=== PATIENT | female | born 1970 | race Caucasian/White ===

== ENCOUNTER 2016-11-12 06:00 | Day surgery (SDC) | payer OTHER ==
[~2016-11-12] VITALS: Ht 182.9 cm; Wt 74.2 kg
[2016-11-12] VITALS (12 sets, daily range): BP systolic 112–145; BP diastolic 55–76; PULSE 61–80; RESP 12–20; O2SAT 95–100
[2016-11-12] MEDS: Lactated Ringer's 1,000 ML IV SCH ×3 (05:00→08:59)
[~2016-11-12 06:00] MED LIST: CA C1TAB77 PO; MULT-1018 PO; TURM500C7 PO; levofloxacin; magnesium PO
[2016-11-12] MEDS ORDERED: Propofol 10,000 mCg/mL 20 mL Inj ONE (06:01)
[2016-11-12] MEDS ORDERED: Dexamethasone 4 mg/mL Inj ONE (06:01)
[2016-11-12] MEDS ORDERED: Ondansetron 2 mg/mL 2 mL Inj ONE (06:01)
[2016-11-12] MEDS ORDERED: Lidocaine PF 1% 30 mL Inj ONE (06:01)
[2016-11-12] MEDS ORDERED: HYDROmorphone 2 mg/mL Inj ONE (06:01)
[2016-11-12] MEDS ORDERED: Rocuronium 10 mg/mL 5 mL Inj ONE (06:01)
[2016-11-12] MEDS ORDERED: fentaNYL-PF 50 mCg/mL 2 mL Inj ONE (06:01)
[2016-11-12] MEDS ORDERED: Glycopyrrolate 0.2 mg/mL 5 mL Inj ONE (06:01)
[2016-11-12] MEDS ORDERED: EPHEDrine/NS 5 mg/mL 5 mL Syringe ONE (06:01)
[2016-11-12] MEDS ORDERED: Ketamine 10 mg/mL 20 mL Inj ONE (06:01)
[2016-11-12] MEDS ORDERED: Neostigmine 1 mg/mL 5 mL Inj ONE (06:01)
[2016-11-12] MEDS ORDERED: Lactated Ringer's 1,000 ML IV ONE ×3 (06:51→11:18)
--- NOTE | 2016-11-12 06:51 | PCM.HPANE ---
Patient Data Date of Service: Nov 12, 2016 Surgeon Admitting Provider: Attending Provider:Tad Ya MD Primary Care Physician:Sima Castillo CNM Other Provider:Stephani Barnes Anesthesia Reason for Visit Left Breast Cancer Ht/WT & BMI Height (Feet): 6 Height (Inches): 0 Weight (Kilograms): 74.2 Body Mass Index 22.00 Allergies Coded Allergies: No Known Allergies (Unverified , 06/06/16) Past Anesthesia History Anesthesia History: Denies:: Abnormal Airway, Anesthesia Reactions, Difficult Intubation, Fam Anesthesia Reaction, Malignant Hyperthermia Diabetes History Hx Diabetes?: No MRSA MRSA: No Medications Hypertension Medication: No Home Meds Incl Beta Toney: No Reported Medications Lactobacillus Combo No.11 (Probiotic)1 Each Cap.sprink1 Each PO DAILY 11/12/16 [D3] No Conflict [id number] Mg PO DAILY 11/12/16 Turmeric Root Extract (Turmeric)500 Mg [id number] Mg PO DAILY 11/07/16 Multivitamin (Multi Vitamin Daily)1 Each Tablet1 Each PO DAILY 30 Days Ref 0 11/07/16 [magnesium] No Conflict [id number] Mg PO DAILY 11/07/16 Discontinued Reported Medications [levofloxacin] No Conflict CheckUnknown Dose DAILY 11/07/16 Ca Carb/Vit D3/Mag Ox/Zn Oxide (Ilia Mag Zinc + D3 Tablet)1 Each Tablet1 Each PO 11/07/16 Ciprofloxacin 500 Mg [id number] Mg PO BID 07/11/16 [Lidocaine 2.5%] No Conflict Check1 Applic TOPICAL ONCE PRN For Pain 06/22/16 Cholecalciferol (Vitamin D3) (Vitamin D3)5,000 Unit/1 Ml Drops5,000 Unit PO DAILY 06/22/16 Lactobacillus Combination No.4 (Probiotic)1 Each Capsule1 Each PO DAILY 06/22/16 Hydrocodone-Acetaminophen 5-325 mg 1 Each Tablet1-2 Tab PO Q6 PRN For Pain Ref 0 06/22/16 Lorazepam 0.5 Mg Tablet0.5 Mg PO TID PRN For Anxiety Ref 0 06/13/16 Ondansetron 8 Mg Tablet8 Mg PO BID PRN VALENTINA 06/13/16 Turmeric Root Extract (Turmeric)500 Mg Nthstfy886 Mg PO DAILY 06/06/16 Multivitamin (Multi Vitamin Daily)1 Each Tablet1 Each PO DAILY 30 Days Ref 0 06/06/16 Discontinued Scripts Amoxicillin/Clav K 875-125 mg (Augmentin 875-125 mg)1 Each Tablet1 Tablet PO BID #10 TABLET Ref 0 Prov:Carol Lacy MD 06/24/16 History History of ENT Problems?: No HEENT History: Denies:: Abnormal Airway Cataracts Difficult Intubation Dysphagia Glaucoma Hearing Problem Sinus Problem Hx of Heart Problems?: No Cardiovascular History: Denies:: AICD Chest Pain Edema Heart Murmur Hypertension Irregular Heartbeat Pacemaker Hx of Respiratory Problem?: No Respiratory History: Denies:: Asthma COPD Emphysema Oxygen Administration Pneumonia Tuberculosis Use of C-PAP Machine Use of Inhalers / NEBS Hx Neurologic Problems?: No Neurological History: Denies:: CVA Headaches Multiple Sclerosis Parkinson's Disease Seizures Hx of GI Problems?: No Gastrointestinal History: Denies:: Gall Bladder Disease Gastroesphageal Reflux Heartburn Hiatal Hernia Liver Disease Hx of Problems?: No Genitourinary History: Denies:: Kidney Stones Urinary Tract Infection Female Hx: Positive for:: Problems with Breasts? (harman simple mastectomy, left axillary LND current admission problem) Denies:: Currently (S/P C/S) Skin History: Denies:: History Skin Disorders? Pressure Ulcers Hx Musculoskeletal Problems?: Yes Musculoskeletal History: Positive for:: Back Injury (hx of herniated disc, not current problem) Denies:: Fibromyalgia Joint Replacement Musculoskeletal Trauma Myasthenia Gravis Osteoarthritis Rheumatoid Arthritis Hx of Psycho/Social Problems?: No Psycho Social History: Denies:: Anxiety Hx Depression Hx Surgeries?: Yes (C SECTION, Left under arm lymph node removal) Hx Any Other Health Problems?: Yes Other History: Positive for:: Cancer (left breast ) Denies:: Endocrine Disease Hospitalization Thyroid Disease History Blood Transfusions: Positive for:: Accept Blood Products? Denies:: Blood Transfuse Reaction Blood Transfusions Hx Diabetes: No Hx Alcohol Use: NoHx Substance Use: No Smoking Status: Never Smoker Have You Smoked inLast 12 mo: No Stop/Bang S-Snoring: Do You Snore Loudly: No T-Tired: feel tired, fatigued: No O-Obsered: Observed not breath: No P-Blood Pressure: treated: No B- Body Mass Index > 35 kg/m2: No A- Age over 50: No N- Neck Large Circumference: No G- Gender Male: No FRANKLIN Total Score: 0 Risk Assessment Category Category 1A: Patient has history of documented sleep apnea, and HAS NOT received any narcotic, sedative or anesthesia administration during this stay. Category 1B: Patient has history of documented sleep apnea, and HAS received any narcotic , sedative or anesthesia administration during this stay Category 2: Patient has SUSPECTED Obstructive Sleep Apnea, and HAS received any narcotic , sedative or anesthesia administration during this stay. Category 3: Patient has SUSPECTED Obstructive Sleep Apnea and HAS NOT received narcotic, sedative or anesthesia administration during this stay. Category 4: Outpatient in Procedural Areas with known sleep apnea or who screen positive for High Risk via the STOP/BANG questionnaire. Exam Exam Vital Signs Vital Signs Date Time Temp Pulse Resp B/P Pulse Ox O2 Delivery O2 Flow Rate FiO2 11/12/16 06:31 36.6 68 20 119/72 98 Room Air General Appearance: Alert, Oriented X3, Cooperative, No Acute Distress HEENT/AIRWAY: MP 1 Lungs: Clear to Auscultation Heart: Exam Unremarkable, Normal S1, Normal S2 Meds/Labs/Diagnostics Admission Meds Current Medications Lactated Ringer's (Lr) 1,000 ml @ 120 mls/hr Q8H20M IV Last administered on t 06:45; Start 11/12/16 at 05:00; Stop 11/12/16 at 13:19 Plan Impression Patient chart reviewed, patient interviewed and anesthestic plan with risks, benefits, and alternatives discussed, and informed consent obtained. NPO Status: 06/10 2030 ASA Physical Status: ASA1 Normal Healthy Anesthetic Plan: GA Bene/Risks/Altern/Consents: Yes HP Complete Prior to Induction: Yes Jeff Daniel DO Nov 12, 2016 06:51
[2016-11-12] MEDS ORDERED: LACT1CAP73 PO (06:52)
[2016-11-12] MEDS ORDERED: D3 PO (06:52)
[2016-11-12] MEDS: CeFAZolin Inj 2 GM in IV Premix 1 EACH IV ONE (08:30)
[2016-11-12] MEDS ORDERED: Bupivacaine-MPF 0.5% 30 mL Inj INFILTRATE ONE (08:59)
[2016-11-12] MEDS ORDERED: Lactated Ringer's 1,000 ML IV SCH (10:36)
[2016-11-12] MEDS ORDERED: Lactated Ringer's 500 ML IV PRN (10:36)
[2016-11-12] MEDS ORDERED: hydrOXYzine Inj 25 MG/1 mL SDV IM PRN (10:40)
[2016-11-12] MEDS ORDERED: EPHEDrine Sulfate 50 mg/mL Inj IVPUSH PRN (10:40)
[2016-11-12] MEDS ORDERED: HYDROmorphone 1 mg/mL Inj IVPUSH PRN ×2 (10:40→12:00)
[2016-11-12] MEDS ORDERED: fentaNYL-PF 50 mCg/mL 2 mL Inj IVPUSH PRN (10:40)
[2016-11-12] MEDS ORDERED: Dexamethasone 4 mg/mL Inj IVPUSH PRN (10:40)
[2016-11-12] MEDS ORDERED: MetoCLOpramide 5 mg/mL 2 mL Inj IVPUSH PRN (10:40)
[2016-11-12] MEDS ORDERED: Atropine 0.4 mg/mL Inj IVPUSH PRN (10:40)
[2016-11-12] MEDS ORDERED: Phenylephrine 10,000 mCg/mL Inj IVPUSH PRN (10:40)
[2016-11-12] MEDS ORDERED: Labetalol 5 mg/mL 4 mL Inj IV PRN (10:40)
[2016-11-12] MEDS ORDERED: Polyethylene Glycol (PEG) 17 Gm Powder PO PRN (12:00)
[2016-11-12] MEDS ORDERED: Ondansetron 2 mg/mL 2 mL Inj IVPUSH PRN (12:00)
--- NOTE | 2016-11-12 13:22 | PCM.ANEP1 ---
Post Anesthesia Phase 1 PACU Phase 1 Assessment Date of Service: Nov 12, 2016 Vital Signs Vital Signs Date Time Temp Pulse Resp B/P Pulse Ox O2 Delivery O2 Flow Rate FiO2 11/12/16 13:12 61 15 117/59 95 Room Air 11/12/16 12:55 63 12 116/55 95 Room Air 11/12/16 12:40 68 16 120/56 100 Simple Mask 10 11/12/16 12:25 65 15 118/63 100 Simple Mask 10 11/12/16 12:20 67 14 121/60 100 Simple Mask 10 11/12/16 12:15 66 15 128/60 100 Simple Mask 10 11/12/16 12:10 36.4 77 14 115/58 99 Simple Mask 10 11/12/16 06:31 36.6 68 20 119/72 98 Room Air Anesthetic Administered: GA Level of Alertness: Drowsy, not talking JEFFERSON's with Equal Strength: Yes Pain: No Nausea or Vomiting: No Oxygen Delivery: Room Air, Simple Mask (Transfer to PACU, report to RN) Lungs: Clear to Auscultation Jeff Daniel DO Nov 12, 2016 13:22
--- NOTE | 2016-11-12 13:38 | OP ---
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 POSTOPERATIVE DIAGNOSIS(ES): Stage III, ER/AR positive, HER2/maximiliano-negative invasive ductal carcinoma of the left breast. PROCEDURE: 1. Right simple mastectomy. 2. Left modified radical mastectomy with axillary reverse lymph node mapping. 3. Removal of right internal jugular PowerPort. SURGEON: Tad Ya MD. ROPING MACHINE TENDER: Shilpi Cazares PA-C. INDICATIONS: A 46-year-old female, who was diagnosed with a T3 N1, ER/AR-positive, HER2/maximiliano-negative invasive ductal carcinoma of the left breast. She had neoadjuvant chemotherapy and then had a repeat breast MR scan. It showed a reduction but not total resolution of her left breast mass. There was no evidence of axillary adenopathy. The right breast was normal. She had decided earlier in her course to have a bilateral mastectomy without reconstruction. Because of extranodal extension of her original jenny disease, then it was discussed to do an axillary dissection. FINDINGS: 1. Right breast with no obvious masses. 2. PowerPort reservoir and catheter came out intact. 3. Left breast, no evidence of chest wall invasion. There was no gross evidence of axillary disease. I did not identify any methylene blue nodes in the axilla despite methylene blue injection in the left upper medial arm. DESCRIPTION OF PROCEDURE: At the beginning and end of the operation, the SCOAP checklist was completed. A general endotracheal anesthetic was induced. Both breasts were prepped and draped in the usual fashion, and her left arm was completely prepped and draped free. She received preoperative antibiotics. She had on pneumatic hose. It was elected to perform the operation in the following sequence: 1. Right simple mastectomy. 2. Removal of PowerPort. 3. Left modified radical mastectomy. The incisions were designed to create symmetry, and the inframammary folds were marked. She was inspected in both supine and sitting and then in a sitting position, and all in the room felt that the design of the incisions was symmetric. The right mastectomy skin incision was then incised and then the superior, medial, lateral and inferior flaps were created using cautery. The breast was dissected off of the pectoralis major. Sutures were placed for margin orientation. Hemostasis was ensured with cautery. The wound was irrigated with saline. I then opened up her old PowerPort site, and the reservoir and catheter were freed from capsule and scar. The port was removed from its pocket and a mattress suture of 3-0 Vicryl was placed around the sheath that surrounded the catheter. The catheter was then removed intact, and the 3-0 Vicryl ligated. Then, 3-0 Vicryl was used to close the subcutaneous tissue. A 19-Iranian Hemaduct drain was placed deep to the right mastectomy flaps and secured with 2-0 nylon. The skin was closed with running subcuticular 4-0 Vicryl. While the skin of the right mastectomy and PowerPort were being closed, I injected 2 cc of methylene blue in the right medial arm both intradermally and just subdermally. The dye was massaged for 10 minutes while the right-sided incisions were being closed. The skin incision for the left mastectomy was then made, and the superior, medial, inferior and lateral flaps were created. The dissection then extended out into the axilla following the lateral borders of the pectorals major and minor. There was dense scarring from the previous sentinel lymph node biopsy and mobilizing that both on the superficial and deep margins was difficult but ultimately achieved. Dissection was carried out and, as stated above, I did not identify any blue lymph nodes. I dissected up to the axillary to where I was easily visualizing the axillary vein. The long thoracic nerve was identified and preserved. The axillary tissue was removed intact with the primary specimen and it extended 15 cm away from the lateral margin of the breast. Hemostasis was ensured with cautery. The wound was irrigated with saline. On this side, two 19-Iranian Hemovac drains were placed, one into the axilla and one under the flaps, both secured with 2-0 nylon. The skin was closed with running subcuticular 4-0 Vicryl. Dermabond was placed over all incisions. The right Venancio-Lewis drain and the anterior drain on the left were then injected through the drains with 0.5% bupivacaine. The estimated blood loss was 100 cc. There were no apparent complications. The final sponge, needle and instrument counts were announced as correct, and the patient was returned to recovery room in stable condition.
--- NOTE | 2016-11-12 14:00 | NUR ---
Admission Patient admitted to [facility] from PACU S/P Bilateral Mastectomy Left axillary lymph node dissection and power port removal. [place] zaidi on Operative site, with CHIDI drain x3 labeled. Dressing dry and intact. IVF patent and infusing well. A/O x4, pain level of 2/10. Patient oriented to room and unit. Made comfortable. Will continue to monitor. Addendum: 11/12/16 at 192 by LAMIN ODONNELL RN Seen by Dr. Ya this pm, patient aware to perform exercises. Ambulating in the room, steady gait. Tylenol IV given for pain 4/10. Requested some pain meds at bed time. GONZALO HOLLOWAY aware. Addendum: 11/12/16 at 2002 by LAMIN ODONNELL RN GONZALO HOLLOWAY will finish remaining admission. Thanks.
[2016-11-12] MEDS: Dextrose 5% 0.9% NaCl 1,000 ML IV SCH (16:34)
[2016-11-12] MEDS: Acetaminophen IV 1,000 MG in IV Premix 1 EACH IV PRN (16:35)
--- NOTE | 2016-11-12 16:45 | PCM.ANEP2 ---
Post Anesthesia Evaluation ASA/CMS Post Anesthesia Date of Service: Nov 12, 2016 VS in Patient's Normal Range?: Yes Resp Stable; Airway Patent?: Yes CV Function & Hydration Stable: Yes Mental Status Recovered?: Yes Pain control Satisfactory?: Yes N/V Control Satisfactory?: Yes Jeff Daniel DO Nov 12, 2016 16:45
[2016-11-12] MEDS: oxyCODONE-Acetamin 5-325 mg Tablet PO PRN (23:02)
--- NOTE | 2016-11-12 23:14 | NUR ---
L Arm Pain Pt c/o severe L arm pain, states "I feel like i'm having a reaction to the dye they injected". Surgeon Tad Ya at 3413. Awaiting response. Addendum: 11/12/16 at 2322 by JACQUELINE SEGUNDO RN Dr Melly moyer at 2327
[2016-11-13 01:30] VITALS: BP 116/61; PULSE 74; RESP 16; O2SAT 96
[2016-11-13] MEDS: Dextrose 5% 0.9% NaCl 1,000 ML IV SCH ×2 (05:29→14:39)
[2016-11-13 05:40] LABS: Mean Corpuscular Hemoglobin 31.5 pg (27.0-35.0)
[2016-11-13] MEDS: Acetaminophen IV 1,000 MG in IV Premix 1 EACH IV PRN (05:42)
[2016-11-13 09:20] VITALS: BP 124/70; PULSE 63; RESP 16; O2SAT 100
--- NOTE | 2016-11-13 09:41 | PROG NOTE ---
[address] [address] PROGRESS NOTE PATIENT: ZARINA TORREZ : 1970 MR#: [id number] ADMIT: 11/12/2016 JOB ID: [id number] DATE: 11/13/2016 SUBJECTIVE: The patient is seen in followup. She is postoperative day one following bilateral mastectomy, left axillary dissection. Her reverse axillary jenny mapping was not helpful and then last night, she had discomfort at the left medial arm injection site but that has all resolved. She is actually having minimal pain. She does have a decreased left shoulder range of motion compared to the right. DATE: PHYSICAL EXAMINATION: Alert, no distress. Temperature 36.5, brachial blood pressure 116/61, pulse 74, respiratory rate 16, O2 sat room air 96%. All incisions are healing well. All flaps are viable. Venancio-Lewis drainage is serosanguineous and typical volumes. Her left medial arm injection site is looking much better than it did yesterday afternoon. The methylene blue has largely absorbed. Hematocrit. 30.5. IMPRESSION: Doing well. PLAN: Physical therapy evaluation today. She might be able to go home later today but almost certainly she will be able go home tomorrow. I discussed discharge with her. I will switch her from IV acetaminophen to oral acetaminophen and continue ongoing physical therapy.
--- NOTE | 2016-11-13 10:01 | NUR ---
Evaluation completed. Please go to "Notes" then click on "Assessments and Notes" (bottom left corner of screen). Then select appropriate discipline tab on top of screen.
--- NOTE | 2016-11-13 12:49 | NUR ---
Social Work: Screening Data: Pt is a 46 y/o female admitted for left breast cancer. Pt's PCP is Dr Castillo, pt's insurance is [employer] med plan. Readmit score not listed. EMR reviewed, no d/c planning needs anticipated at this time. COLLECTION TECHNICIAN will continue to follow if needs arise. Assessment: Pt who is independent at baseline. Plan: Pt will d/c home via POV when medically stable. No d/c planning needs anticipated at this time. COLLECTION TECHNICIAN will continue to follow if needs arise. HIRA Perez
[2016-11-13 16:11] VITALS: BP 98/61; PULSE 68; RESP 16; O2SAT 99
[2016-11-13 20:30] VITALS: BP 134/70; PULSE 64; RESP 18; O2SAT 100
[2016-11-13] MEDS: oxyCODONE-Acetamin 5-325 mg Tablet PO PRN (21:22)
[2016-11-14 00:30] VITALS: BP 124/63; PULSE 60; RESP 18; O2SAT 97
[2016-11-14] MEDS: Dextrose 5% 0.9% NaCl 1,000 ML IV SCH (01:10)
--- NOTE | 2016-11-14 05:34 | NUR ---
Pain Pt c/o 12/13 breast pain and requested Tylenol. Tylenol 975mg ordered, but exceeded the 24 hr 4000mg limit. She requested two Tylenol instead, which was within her limit. Will continue to monitor for discomfort.
--- NOTE | 2016-11-14 09:30 | NUR ---
Plan for Discharge Dr. Ya came to see patient, stated he would be putting in discharge order for patient. Stated patient could shower before she leaves, does not need to wrap the sites, can allow water to run over the sites. Stated patient does not need dressing unless there is discharge. Stated patient will need to follow up in his office.
[2016-11-14 10:05] VITALS: BP 120/61; PULSE 60; RESP 20; O2SAT 98
--- NOTE | 2016-11-14 10:17 | PCM.DISURG ---
Surgical Discharge Instruction Date of Service Nov 14, 2016 Dates of Hospitalization Date of Hospital Admission Providers Admitting Physician: Primary Care Physician: Sima Castillo CNM Attending Physician: Tad Ya MD Diet Discharge Diet: No restrictions Activity Discharge Activity-General: Try not to overdue, May drive in (when alert and not taking narcotics) Dressing and Incisional Care Dressing Care: Other (use a dressing as necessary) Hygiene: May shower Additional Instructions Discharge Instructions Discharge with all three drains and follow drain protocol Follow Up Plan Follow-up Provider (F9): Tad Ya MD Follow-up appointment: Days (early next week) Tad Ya MD Nov 14, 2016 10:17
--- NOTE | 2016-11-14 12:02 | NUR ---
Shower prior to discharge Assisted patient with undressing and making sure drains are secure prior to shower. Surgical sites appeared in good process of healing, no discharge noted. Patient able to get into shower, but sat on commode chair in shower for comfort and security.
--- NOTE | 2016-11-14 13:11 | NUR ---
Discharge Note Patient was given all discharge instructions and education. Patient will be calling Dr. Ya's office for follow up appt. She is aware she needs to empty CHIDI drains and keep record of 24 hr output, she was given additional supplies to collect and measure the output. IV discontinued intact at this time. All of patient belongings were gathered by herself and her friend. Patient transported to waiting vehicle via wheelchair.
--- NOTE | 2016-11-14 15:40 | NUR ---
Social Work Discharge: Order for discharge acknowledged. Plan is home with spouse. Patient independent with needs. No anticipated discharge needs identified at this time. Plan is home PLAN: Home with spouse, pending clinical course Wandy INIGUEZ
--- NOTE | 2016-11-14 17:06 | PATH ---
SURGICAL PATHOLOGY Attending Physician:Hawa Thibodeaux CASE STATUS: Signed Out PATIENT NAME: ZARINA TORREZ PID: [id number] : 1970 DATE COLLECTED:11/12/2016 00:00 SPECIMEN: 1: Breast, Simple Mastectomy (w/o lymph nodes) 2: Breast, Modified Radical Mastectomy (including lymph nodes) 3: Lymph Nodes, Regional Resection CLINICAL HISTORY: LEFT BREAST CANCER 1). RIGHT BREAST SHORT STITCH SUPERIOR LONG 2). LEFT BREAST SHORT STITCH AXILLA, LONG STITCH INFERIOR 3). LEFT BREAST AXILLARY TAIL FINAL DIAGNOSIS: 1. RIGHT BREAST, SIMPLE MASTECTOMY: BENIGN BREAST TISSUE WITH NO PATHOLOGIC ALTERATIONS. NO EVIDENCE OF MALIGNANCY. 2. LEFT BREAST, MODIFIED RADICAL MASTECTOMY: INVASIVE CARCINOMA OF THE BREAST PROCEDURE: MODIFIED RADICAL MASTECTOMY. LYMPH NODE SAMPLING: SEE PART 3. SPECIMEN LATERALITY: LEFT. TUMOR SITE: 2 O' CLOCK. TUMOR SIZE: 58 X 20 X 16 MM. HISTOLOGIC TYPE: INVASIVE DUCTAL, NOS. HISTOLOGIC GRADE: ZARINA HISTOLOGIC SCORE: RESIDUAL TUMOR SHOWS TREATMENT EFFECT, PRIOR CORE BIOPSY WAS ZARINA 2 + 2 + 1 = 5/10, LOW GRADE. TUMOR FOCALITY: UNIFOCAL. DUCTAL CARCINOMA IN SITU: NOT IDENTIFIED. MACROSCOPIC AND MICROSCOPIC EXTENT OF TUMOR SKIN: UNINVOLVED. NIPPLE: UNINVOLVED. SKELETAL MUSCLE: NOT PRESENT. MARGINS INVASIVE CARCINOMA: ALL MARGINS ARE UNINVOLVED BY INVASIVE CARCINOMA. DISTANCE FROM CLOSEST MARGIN: 6 MM FROM POSTERIOR MARGIN. ALL OTHER MARGINS ARE GREATER THAN 10 MM FROM TUMOR. DUCTAL CARCINOMA IN SITU MARGIN: DCIS IS NOT PRESENT. LYMPH NODES Total number of lymph nodes examined: ONE. Number of sentinel lymph nodes examined: ZERO. Lymph Node Involvement: Number of lymph nodes with macrometastases: ZERO. Number of lymph nodes with micrometastases: ZERO. TREATMENT EFFECT: Response to Presurgical (Neoadjuvent) Therapy: Breast: DEFINITE RESPONSE TO PRESURGICAL THERAPY IN THE INVASIVE CARCINOMA. Lymph nodes: NO LYMPH NODE METASTASES, AND NO PROMINENT FIBROUS SCARRING IN THE NODES. LYMPH-VASCULAR INVASION: NOT IDENTIFIED. DERMAL LYMPH-VASCULAR INVASION: NOT IDENTIFIED. PATHOLOGIC STAGING: AJCC, 7th ed., 2010 PRIMARY TUMOR: ypT3. REGIONAL LYMPH NODES: ypN0. ANCILLARY STUDIES: Biomarkers Performed Previously on Case: ER, MI, AND HER2 STUDIES WERE PERFORMED ON THE PRE-THERAPY CORE BIOPSY AND WERE NOT REPEATED ON THIS SPECIMEN. 3.LEFT BREAST AXILLARY TAIL: ONE LYMPH NODE IDENTIFIED, NO EVIDENCE OF MALIGNANCY. ICD10 code C50.912 GROSS DESCRIPTION: The specimens are received in formalin, labeled with the patient's name, and sublabeled as the following: (1) right breast, short stitch superior, short long stitch medial; (2) left breast, short stitch axilla, long stitch inferior; (3) left breast axillary tail. (1) The specimen consists of a right breast (2.7 cm AP, 12.5 cm SI, 13.2 cm ML) partially covered by an ellipse of skin (3.8 cm SI, 13.1 cm ML) with nipple/areola complex (3.8 x 3.5 cm). The axillary tail is absent. The specimen is oriented with 2 black sutures (short-superior, long-medial). The breast tissue is densely fibrous with no nodules, masses or lesions identified. The skin and nipple/areola complex are kelly-white and unremarkable. Ink code: purple-anterior; yellow-posterior; black-superior; orange-inferior; green-medial; blue-lateral. Section code: (1A) nipple; (1B) skin; (1C, 1D) upper outer quadrant; (1E, 1F) lower outer quadrant; (1G, 1H) upper inner quadrant; (1I, 1J) lower inner quadrant. (2) The specimen consists of a left breast (3.6 cm AP, 14.2 cm SI, 14.2 cm ML) partially covered by an ellipse of skin (3.7 cm SI, 11.6 cm ML) with nipple/areola complex (3.5 x 3.0 cm) with an attached axillary tail (13.7 x 4.3 x 1.2 cm). The specimen is oriented with 2 black sutures (short-axilla, long-inferior). The specimen is serially sectioned ML into 22 slices with the medial and lateral resection margins slices #1 and #22 respectively. The breast tissue is fibrofatty and densely fibrous within slices #10 to #20. No defined mass or irregular firm areas are identified. Slices #13-#16 are the most fibrously dense. This area coincides with the imaging report although no biopsy cavity is identified. The skin and nipple/areola complex are kelly-white and unremarkable. Ink code: purple-anterior; yellow-posterior; black-superior; orange-inferior; green-medial; blue-lateral. Section code: (2A) nipple; (2B) skin; (2C) medial resection margin, perpendicularly sectioned, help desk representative; (2D) slice #10, help desk representative; (2E) slice #11, help desk representative; (2F-2G) slice #12, help desk representative; (2H-2I) slice #13, help desk representative; (2J-2K) slice #14, help desk representative; (2L-2M) slice #15, help desk representative; (2N) slice #16, help desk representative; (2O) slice #17, help desk representative; (2P) slice #18, help desk representative; (2Q) slice #19, help desk representative; (2R) slice #20, help desk representative; (2S) slice #21, help desk representative; (2T) lateral resection margin, perpendicularly sectioned, help desk representative. Note: Gross consultation with Dr. Ramesh Rendon for tissue section submission. (3) The specimen consists of multiple pieces of adipose tissue (3.5 x 1.5 x 0.2 cm in aggregate) containing a possible lymph node (0.7 x 0.3 x 0.3 cm). Section code: (3A) one lymph node, bisected; (3B, 3C) remaining adipose tissue. Specimen entirely submitted. Note: Approximate total fixation time in formalin for all specimens-42 hours and 30 minutes coagulated using a collection date of November 12, 2016 with the time and fixative of 0932. 11/13/16 JM MICRO DESCRIPTION: See diagnosis. ICD-9 CODES: CPT CODES: 1: 17761 2: 98815 3: 08775 Electronically Signed Out Dominique Dutton MD [facility] [address], [place] [address] Technical component performed at [facility], [facility] [address], [place], [address]
--- NOTE | 2016-11-18 07:45 | DIS ---
[address] [address] DISCHARGE SUMMARY PATIENT: ZARINA TORREZ : 1970 MR#: [id number] ADMIT: 11/12/2016 JOB ID: [id number] DIS: 11/14/2016 DISCHARGE DIAGNOSIS: T3 N1 ER positive, HER-2/maximiliano negative infiltrating ductal carcinoma, left breast. OPERATION: 1. Right simple mastectomy. 2. Left modified radical mastectomy with reverse axillary skin jenny mapping. 3. Removal of Power Port. HISTORY OF PRESENT ILLNESS: The patient is a 46-year-old female with left breast cancer as identified above. She underwent neoadjuvant radiochemotherapy and then after discussing options with the patient and it was elected to proceed at her request with a bilateral mastectomy. Because of her jenny status and left axillary dissection at her request she did not want to undergo immediate reconstruction. Her Power Port also was no longer needed and it was elected to remove that at the same time. HOSPITAL COURSE: On the day of admission, her operation was performed. See operative report for details. Postoperative course was uncomplicated. Today on the day of discharge, she is alert. She has had instruction in physical therapy. She has minimal pain and she would like to go home. PHYSICAL EXAMINATION: Temperature is 36.7. Vital signs are stable. Her incisions are all healing well. Flaps are viable. Venancio-Lewis drains are in and draining low volumes of light serosanguineous fluid. DISPOSITION: She is discharged to home with all her drains. She just takes over the counter vitamins. She is discharged on some oxycodone with acetaminophen for pain. She will return to see me next week for followup. cc: Sima Castillo CNM
[2017-02-07] MEDS ORDERED: CALC600T12 PO (16:24)
== END 2016-11-14 13:10 | disposition home or self-care (01) ==
LOC: SAS 06:00 → MOC 14:49 → UNDOADMIN 14:49 → MOC 14:57 → SAS 11-14 13:10
PROVIDERS: ATTEND Surgery
DX: C50.912 Malignant neoplasm of unspecified site of left female breast (principal); Z45.2 Encounter for adjustment and management of vascular access device; Z17.0 Estrogen receptor positive status [ER+]; Z92.21 Personal history of antineoplastic chemotherapy
CPT/HCPCS: 19303; 19305; 36415; 36590; 38745; 38792; 85027; 97161; J0131; J0690; J1100; J1170; J2250; J2405; J2710; J3010; J7042; J7120